=== PATIENT | male | born 1940 | race Caucasian/White ===

== ENCOUNTER 2016-11-18 11:12 | Inpatient (IN) | payer MEDICARE, BC ==
[~2016-11-18] VITALS: Ht 173 cm; Wt 87.4 kg
[2016-11-18] MEDS: DEXTROSE 5% SALINE 0.45% 1,000 ML IV SCH (14:35)
[2016-11-18] MEDS: CEFTRIAXONE 1 GM in SODIUM CHLORIDE 0.9% 50 ML IV SCH (14:35)
[2016-11-18 15:30] VITALS: Ht 173 cm; Wt 87.4 kg
[2016-11-18 16:18] VITALS: BP_SYST 101; RESP 18; TEMP 97.6
[2016-11-18 19:36] VITALS: BP_SYST 107; RESP 18; TEMP 97.4
[2016-11-18] MEDS: ONDANSETRON 4 MG VIAL IV PUSH PRN (21:17)
[2016-11-18 23:06] VITALS: BP_SYST 99; RESP 18; TEMP 97.5
[2016-11-19] MEDS: METHYLPRED SOD SUCC 40 MG VIAL IV SCH ×4 (00:52→17:43)
[2016-11-19] MEDS: DEXTROSE 5% SALINE 0.45% 1,000 ML IV SCH (04:21)
[2016-11-19 04:22] VITALS: BP_SYST 106; RESP 18; TEMP 98.3
[2016-11-19 07:13] VITALS: BP_SYST 106; RESP 18; TEMP 97.7
[2016-11-19] MEDS: CLOPIDOGREL 75 MG TAB PO SCH (08:23)
[2016-11-19] MEDS: CEFTRIAXONE 1 GM in SODIUM CHLORIDE 0.9% 50 ML IV SCH (08:23)
[2016-11-19] MEDS: ASPIRIN EC 81 MG TAB PO SCH (08:23)
[2016-11-19] MEDS: AZITHROMYCIN 500 MG in SODIUM CHLORIDE 0.9% 250 ML IV SCH (11:16)
[2016-11-19 11:30] VITALS: BP_SYST 95; RESP 18; TEMP 97.6
[2016-11-19 15:26] VITALS: BP_SYST 102; RESP 18; TEMP 98.2
[2016-11-19] MEDS: SODIUM CHLOR 0.9% W/KCL 20MEQ 1,000 ML IV SCH (16:07)
[2016-11-19 19:36] VITALS: BP_SYST 107; RESP 18; TEMP 97.9
[2016-11-19 23:15] VITALS: BP_SYST 133; RESP 18; TEMP 98.3
[2016-11-20] MEDS: METHYLPRED SOD SUCC 40 MG VIAL IV SCH ×4 (00:11→17:47)
[2016-11-20] MEDS: SODIUM CHLOR 0.9% W/KCL 20MEQ 1,000 ML IV SCH ×2 (01:59→17:47)
[2016-11-20] MEDS: ONDANSETRON 4 MG VIAL IV PUSH PRN (06:15)
[2016-11-20 07:54] VITALS: BP_SYST 107; RESP 18
[2016-11-20] MEDS: CLOPIDOGREL 75 MG TAB PO SCH (08:08)
[2016-11-20] MEDS: ASPIRIN EC 81 MG TAB PO SCH (08:08)
[2016-11-20] MEDS: CEFTRIAXONE 1 GM in SODIUM CHLORIDE 0.9% 50 ML IV SCH (08:08)
[2016-11-20] MEDS: AZITHROMYCIN 500 MG in SODIUM CHLORIDE 0.9% 250 ML IV SCH (09:53)
[2016-11-20 10:58] VITALS: BP_SYST 125; RESP 18; TEMP 97.4
[2016-11-20 15:29] VITALS: BP_SYST 118; RESP 18; TEMP 97.9
[2016-11-20 19:18] VITALS: BP_SYST 129; RESP 18; TEMP 97.6
[2016-11-20] MEDS: amLODIPine 10 MG TAB PO SCH (21:50)
[2016-11-21] VITALS: BP_SYST 126; RESP 18; TEMP 98
[2016-11-21] MEDS: METHYLPRED SOD SUCC 40 MG VIAL IV SCH ×2 (00:27→05:35)
[2016-11-21 03:30] VITALS: BP_SYST 124; RESP 20; TEMP 97.6
[2016-11-21 08:07] VITALS: BP_SYST 125; RESP 16; TEMP 97.5
[2016-11-21] MEDS: ASPIRIN EC 81 MG TAB PO SCH (09:32)
[2016-11-21] MEDS: CEFTRIAXONE 1 GM in SODIUM CHLORIDE 0.9% 50 ML IV SCH (09:32)
[2016-11-21] MEDS: CLOPIDOGREL 75 MG TAB PO SCH (09:32)
[2016-11-21] MEDS: AZITHROMYCIN 500 MG in SODIUM CHLORIDE 0.9% 250 ML IV SCH (10:35)
[2016-11-21 11:26] VITALS: BP_SYST 112; RESP 16; TEMP 97.4
[2016-11-21] MEDS: ALLOPURINOL 100 MG TAB PO SCH (11:32)
[2016-11-21 14:56] VITALS: BP_SYST 135; RESP 16; TEMP 97.3
[2016-11-21 19:45] VITALS: BP_SYST 130; RESP 18; TEMP 97.3
[2016-11-21] MEDS: amLODIPine 10 MG TAB PO SCH (20:22)
[2016-11-21] MEDS ORDERED: SALINE FLUSH 10 ML FLUSH PRN (23:55)
[2016-11-22] VITALS (8 sets, daily range): BP systolic 123–136; RESP 16–20; TEMP 97.3–98.4
[2016-11-22] MEDS: SODIUM CHLORIDE 0.9% FLUSH BAG 500 ML IV SCH (03:59)
[2016-11-22] MEDS: SALINE FLUSH 10 ML FLUSH SCH ×2 (08:00→20:06)
[2016-11-22] MEDS: CEFTRIAXONE 1 GM in SODIUM CHLORIDE 0.9% 50 ML IV SCH (09:19)
[2016-11-22] MEDS: ALLOPURINOL 100 MG TAB PO SCH (09:22)
[2016-11-22] MEDS: CLOPIDOGREL 75 MG TAB PO SCH (09:22)
[2016-11-22] MEDS: ASPIRIN EC 81 MG TAB PO SCH (09:22)
[2016-11-22] MEDS: AZITHROMYCIN 500 MG in SODIUM CHLORIDE 0.9% 250 ML IV SCH (10:03)
[2016-11-22] MEDS: amLODIPine 10 MG TAB PO SCH (20:06)
[2016-11-23] VITALS (8 sets, daily range): BP systolic 91–134; RESP 16–20; TEMP 97.5–98.4
[2016-11-23] MEDS: ONDANSETRON 4 MG VIAL IV PUSH PRN (04:44)
[2016-11-23] MEDS: SODIUM CHLORIDE 0.9% FLUSH BAG 500 ML IV SCH (04:50)
[2016-11-23] MEDS ORDERED: ALU/MAG/SIM 30 ML UDC PO PRN (09:20)
[2016-11-23] MEDS ORDERED: ALU/MAG/SIM 30 ML UDC PO ONE (09:20)
[2016-11-23] MEDS: ASPIRIN EC 81 MG TAB PO SCH (10:06)
[2016-11-23] MEDS: CLOPIDOGREL 75 MG TAB PO SCH (10:06)
[2016-11-23] MEDS: SALINE FLUSH 10 ML FLUSH SCH ×2 (10:07→21:38)
[2016-11-23] MEDS: ALLOPURINOL 100 MG TAB PO SCH (10:07)
[2016-11-23] MEDS: CEFTRIAXONE 1 GM in SODIUM CHLORIDE 0.9% 50 ML IV SCH (10:08)
[2016-11-23] MEDS: MESALAMINE 375 MG PO SCH ×2 (17:00→21:00)
[2016-11-23] MEDS: SACCHA BOULARDII 250MG CAP PO SCH ×2 (18:20→21:34)
[2016-11-23] MEDS: [UNRECOGNIZED DRUG - REMARK] XX SCH (20:00)
[2016-11-23] MEDS ORDERED: TEMAZEPAM 15 MG CAP PO SCH (21:00)
[2016-11-23] MEDS: amLODIPine 10 MG TAB PO SCH (21:35)
[2016-11-24 05:39] VITALS: BP_SYST 114; RESP 20; TEMP 98.2
[2016-11-24] MEDS: SODIUM CHLORIDE 0.9% FLUSH BAG 500 ML IV SCH (05:39)
[2016-11-24 07:35] VITALS: BP_SYST 114; RESP 20; TEMP 97.9
[2016-11-24] MEDS: [UNRECOGNIZED DRUG - REMARK] XX SCH ×2 (08:00→20:00)
[2016-11-24] MEDS: MESALAMINE 375 MG PO SCH ×4 (09:00→20:17)
[2016-11-24] MEDS: SALINE FLUSH 10 ML FLUSH SCH ×2 (10:30→20:25)
[2016-11-24] MEDS: ASPIRIN EC 81 MG TAB PO SCH (10:30)
[2016-11-24] MEDS: CEFTRIAXONE 1 GM in SODIUM CHLORIDE 0.9% 50 ML IV SCH (10:30)
[2016-11-24] MEDS: ALLOPURINOL 100 MG TAB PO SCH (10:30)
[2016-11-24] MEDS: SACCHA BOULARDII 250MG CAP PO SCH ×3 (10:30→20:18)
[2016-11-24] MEDS: CLOPIDOGREL 75 MG TAB PO SCH (10:30)
[2016-11-24 12:08] VITALS: BP_SYST 120; RESP 18; TEMP 97.4
[2016-11-24 17:04] VITALS: BP_SYST 116; RESP 18; TEMP 97.8
[2016-11-24] MEDS ORDERED: PROMETHAZINE/COD 5 ML UDC PO PRN (19:05)
[2016-11-24 19:15] VITALS: BP_SYST 117; RESP 18; TEMP 97.9
[2016-11-24] MEDS: amLODIPine 10 MG TAB PO SCH (20:18)
[2016-11-24] MEDS: NYSTATIN 500,000 UNITS/5 ML SUSP SWISH.SWAL SCH (20:18)
[2016-11-24] MEDS: TEMAZEPAM 7.5 MG CAP PO SCH (21:00)
[2016-11-24 22:52] VITALS: BP_SYST 97; RESP 18; TEMP 97.9
[2016-11-25 07:05] VITALS: BP_SYST 119; RESP 16; TEMP 98.2
[2016-11-25] MEDS: SODIUM CHLORIDE 0.9% FLUSH BAG 500 ML IV SCH (07:44)
[2016-11-25] MEDS: [UNRECOGNIZED DRUG - REMARK] XX SCH ×2 (08:00→20:00)
[2016-11-25] MEDS: ASPIRIN EC 81 MG TAB PO SCH (08:38)
[2016-11-25] MEDS: ALLOPURINOL 100 MG TAB PO SCH (08:38)
[2016-11-25] MEDS: SALINE FLUSH 10 ML FLUSH SCH ×2 (08:39→21:24)
[2016-11-25] MEDS: NYSTATIN 500,000 UNITS/5 ML SUSP SWISH.SWAL SCH ×4 (08:39→21:25)
[2016-11-25] MEDS: CLOPIDOGREL 75 MG TAB PO SCH (08:39)
[2016-11-25] MEDS: CEFTRIAXONE 1 GM in SODIUM CHLORIDE 0.9% 50 ML IV SCH (08:39)
[2016-11-25] MEDS: SACCHA BOULARDII 250MG CAP PO SCH ×3 (08:39→21:22)
[2016-11-25] MEDS: MESALAMINE 375 MG PO SCH ×4 (08:39→21:00)
[2016-11-25 11:12] VITALS: BP_SYST 117; RESP 20; TEMP 98
[2016-11-25 11:13] VITALS: RESP 16
[2016-11-25 15:18] VITALS: BP_SYST 116; RESP 20; TEMP 98.5
[2016-11-25 19:28] VITALS: BP_SYST 117; RESP 20; TEMP 97.9
[2016-11-25] MEDS ORDERED: METHYLPRED SOD SUCC 125 MG/2 ML VIAL IV ONE (21:05)
[2016-11-25] MEDS: amLODIPine 10 MG TAB PO SCH (21:24)
[2016-11-25] MEDS: TEMAZEPAM 7.5 MG CAP PO SCH (21:24)
[2016-11-25 22:07] VITALS: BP_SYST 138; RESP 20; TEMP 97.6
[2016-11-26] MEDS: SODIUM CHLORIDE 0.9% FLUSH BAG 500 ML IV SCH (04:30)
[2016-11-26 07:43] VITALS: BP_SYST 139; RESP 20; TEMP 97.5
[2016-11-26] MEDS: MESALAMINE 375 MG PO SCH (09:00)
[2016-11-26] MEDS: NYSTATIN 500,000 UNITS/5 ML SUSP SWISH.SWAL SCH (09:12)
[2016-11-26] MEDS: SALINE FLUSH 10 ML FLUSH SCH (09:12)
[2016-11-26] MEDS: CLOPIDOGREL 75 MG TAB PO SCH (09:13)
[2016-11-26] MEDS: [UNRECOGNIZED DRUG - REMARK] XX SCH (09:13)
[2016-11-26] MEDS: ALLOPURINOL 100 MG TAB PO SCH (09:13)
[2016-11-26] MEDS: ASPIRIN EC 81 MG TAB PO SCH (09:13)
[2016-11-26] MEDS: SACCHA BOULARDII 250MG CAP PO SCH (09:13)
[2016-11-26 11:39] VITALS: BP_SYST 139; RESP 20; TEMP 97.5
[2016-11-26 11:40] VITALS: BP_SYST 121; RESP 16; TEMP 97.3
== END 2016-11-26 13:05 | disposition home or self-care (01) | DRG 871 ==
LOC: TBA 11:12 → ENPENDDIS 11:12 → 4NT 12:26
PROVIDERS: ADMIT Internal Medicine; ATTEND Internal Medicine
DX: A41.9 Sepsis, unspecified organism (principal); J18.9 Pneumonia, unspecified organism; N17.9 Acute kidney failure, unspecified; J44.0 Chronic obstructive pulmonary disease with (acute) lower respiratory infection; E86.9 Volume depletion, unspecified; B37.0 Candidal stomatitis; J44.1 Chronic obstructive pulmonary disease with (acute) exacerbation; I25.10 Atherosclerotic heart disease of native coronary artery without angina pectoris; R07.89 Other chest pain; Z87.891 Personal history of nicotine dependence; Z79.82 Long term (current) use of aspirin; M1A.9XX0 Chronic gout, unspecified, without tophus (tophi); G47.00 Insomnia, unspecified
CPT/HCPCS: 71010; 71020; 71250; 80053; 81001; 81050; 82436; 82728; 83540; 83605; 84133; 84145; 84300; 84466; 84484; 84550; 84560; 85025; 86038; 86060; 86141; 86431; 87040; 87088; 87493; 93005; 94799